=== PATIENT | male | born 1970 | race Two or more races ===

== ENCOUNTER 2024-09-25 09:15 | Inpatient (IN) | payer OTHER ==
[~2024-09-25] VITALS: Ht 165.1 cm; Wt 64.0 kg
[2024-09-25 11:09] VITALS: BP 132/78
[2024-09-25 11:19] LABS: URINE APPEARANCE Clear; URINE BILIRRUBIN Negative (NEGATIVE); URINE BLOOD Negative; URINE COLOR Yellow; URINE GLUCOSE Negative (NEGATIVE); URINE KETONE Negative (NEGATIVE); URINE LEUKOCYTE Negative; URINE NITRATE Negative; URINE PROTEIN Negative (NEGATIVE); URINE UROBILINOGEN 1.0 E.U./dl
[2024-09-25 11:30] LABS: URINE BACTERIA 0 uL (0.0-1933); URINE CAST 0.00 uL (0.0-1.40); URINE EPITHELIAL CELLS 0.3 uL (0.0-38.8); URINE RBC 0.8 uL (0.0-20.8); URINE WBC 0.3 uL (0.0-23.2)
[2024-09-25 11:35] LABS: BASO % 0.7 % (0.1-1.2); EOS # 0.14 (0.04-0.54); EOS % 2.0 % (0.7-7.0); LYMPH # 1.91 (1.18-3.74); LYMPH % 27.4 % (19.3-53.1); MEAN PLATELET VOLUME 10.40 fl (9.4-12.4); MONO # 0.54 (0.24-0.82); MONO % 7.7 % (4.7-12.5); NEUT # 4.31 (1.56-6.13); NEUT % 61.8 % (34.0-71.1)
[2024-09-25 11:58] LABS: INR 1.05
[2024-09-25 12:06] LABS: ALT/SGPT 13.0 U/L (12-78); AST/SGOT 12.0 U/L (15-37); BILIRUBIN TOTAL 0.66 mg/dL (0.3-1.2); BUN CREA RATIO 10.0 (7.0-25.0); CREATININE SERUM 0.63 mg/dL (0.70-1.30); GFR 132.22; GLOBULINA 3.3 G/DL (2.4-3.5); GLUCOSE FASTING 93.0 mg/dL (65-100); OSMOLALITY SERUM 279.0 MOSM/KG (275-295)
[2024-09-25 13:07] LABS: RH POSITIVE
[2024-09-25 13:30] LABS: RED CELL DISTRIBUTION WIDTH 25.2 % (11.6-14.4)
[2024-10-01] MEDS ORDERED: BUPIVACAINE HCL 30 ML VIAL IJ ONE (11:30)
[2024-10-01] MEDS ORDERED: METRONIDAZOLE/SODIUM CHLORIDE 500 MG/100 ML PIGGYBACK IV ONE (11:30)
[2024-10-01] MEDS ORDERED: CEFTRIAXONE SODIUM 2,000 MG VIAL IV ONE (11:30)
[2024-10-01] MEDS ORDERED: LIDOCAINE HCL 1%/EPINEPHRINE 20ML VIAL IJ ONE (11:30)
[2024-10-01] MEDS ORDERED: OxyCODONE HCL 5 MG TABLET (ROXICODONE) PO PRN (11:45)
[2024-10-01] MEDS ORDERED: ONDANSETRON HCL 2 MG/ML VIAL IV PRN (11:45)
[2024-10-01] MEDS ORDERED: RINGERS SOLUTION,LACTATED 1,000 ML IV SCH (11:45)
[2024-10-01] MEDS ORDERED: MORPHINE SULFATE 4 MG/ML CARTRIDGE IV PRN (11:45)
[2024-10-01] MEDS ORDERED: DEXTROSE 50 % IN WATER 0.5 G/ML VIAL IV PRN (11:45)
[2024-10-01] MEDS ORDERED: HYOSCYAMINE SULFATE 0.125 MG TAB.SUBL SL SCH (13:00)
[2024-10-01] MEDS ORDERED: MORPHINE SULFATE 4 MG/ML VIAL IV ONE (13:35)
[2024-10-01] MEDS ORDERED: ACETAMINOPHEN 500 MG GEL..CAP PO SCH (14:00)
[2024-10-01 16:07] LABS: BASO % 0.2 % (0.1-1.2); EOS # 0.00 (0.04-0.54); EOS % 0.0 % (0.7-7.0); LYMPH # 0.72 (1.18-3.74); LYMPH % 4.2 % (19.3-53.1); MONO # 0.67 (0.24-0.82); MONO % 3.9 % (4.7-12.5); NEUT # 15.62 (1.56-6.13); NEUT % 91.3 % (34.0-71.1)
[2024-10-01 16:16] LABS: RED CELL DISTRIBUTION WIDTH 26.5 % (11.6-14.4)
[2024-10-01 16:20] VITALS: BP 126/75; O2SAT 94
[2024-10-01 16:32] LABS: BUN CREA RATIO 17.0 (7.0-25.0); CREATININE SERUM 0.6 mg/dL (0.70-1.30); GFR 139.88; GLUCOSE FASTING 96.0 mg/dL (65-100); OSMOLALITY SERUM 280.0 MOSM/KG (275-295)
[2024-10-01] MEDS ORDERED: GABAPENTIN 300 MG CAPSULE PO SCH (17:00)
[2024-10-01] MEDS ORDERED: FAMOTIDINE/PF 20 MG/2 ML VIAL IV PUSH SCH (21:00)
[2024-10-02 01:16] VITALS: BP 128/80; O2SAT 99
[2024-10-02 06:40] LABS: BASO % 0.3 % (0.1-1.2); EOS # 0.04 (0.04-0.54); EOS % 0.3 % (0.7-7.0); LYMPH # 1.86 (1.18-3.74); LYMPH % 13.7 % (19.3-53.1); MONO # 1.03 (0.24-0.82); MONO % 7.6 % (4.7-12.5); NEUT # 10.50 (1.56-6.13); NEUT % 77.7 % (34.0-71.1)
[2024-10-02 06:56] LABS: RED CELL DISTRIBUTION WIDTH 26.5 % (11.6-14.4)
[2024-10-02 07:17] LABS: BUN CREA RATIO 13.0 (7.0-25.0); CREATININE SERUM 0.54 mg/dL (0.70-1.30); GFR 157.96; GLUCOSE FASTING 85.0 mg/dL (65-100); OSMOLALITY SERUM 277.0 MOSM/KG (275-295)
[2024-10-02 08:00] VITALS: BP 155/76; O2SAT 97
[2024-10-02] MEDS ORDERED: ENOXAPARIN SODIUM 40 MG/0.4 ML SYRINGE SUBCUTANEO SCH (17:00)
[2024-10-02 17:23] VITALS: BP 170/86; O2SAT 99
[2024-10-03 00:27] VITALS: BP 134/79; O2SAT 99
[2024-10-03 08:10] VITALS: BP 133/83; O2SAT 98
[2024-10-03] MEDS ORDERED: ENOXAPARIN SODIUM 40 MG/0.4 ML SYRINGE SUBCUTANEO SCH (09:00)
[2024-10-03] MEDS ORDERED: HYOSCYAMINE0.125 M1 SL (14:30)
[2024-10-03] MEDS ORDERED: INTESTINEX680 M1 PO (14:30)
[2024-10-03 16:36] VITALS: BP 151/88; O2SAT 100
== END 2024-10-03 18:42 | disposition home or self-care (01) | DRG 330 ==
LOC: SURH 10-01 08:20 → O/R 10-01 08:20 → SURH 10-01 09:15
PROVIDERS: ADMIT Surgery; ATTEND Surgery
PROC: 07BC4ZZ Excision of Pelvis Lymphatic, Percutaneous Endoscopic Approach (ICD-10-PCS; 2024-10-01)
PROC: 0DBL4ZZ Excision of Transverse Colon, Percutaneous Endoscopic Approach (ICD-10-PCS; 2024-10-01)
PROC: 0DTF4ZZ Resection of Right Large Intestine, Percutaneous Endoscopic Approach (ICD-10-PCS; principal; 2024-10-01 10:45)
DX: C18.2 Malignant neoplasm of ascending colon (principal); C18.3 Malignant neoplasm of hepatic flexure; K62.5 Hemorrhage of anus and rectum; D49.0 Neoplasm of unspecified behavior of digestive system; R59.0 Localized enlarged lymph nodes; D64.89 Other specified anemias

== ENCOUNTER 2024-09-25 16:30 | Inpatient (IN) | payer OTHER ==
[~2024-09-25] VITALS: Ht 165.1 cm; Wt 65.3 kg
--- NOTE | 2024-09-25 16:36 | NUR ---
SE RECIBE PTE ALERTA Y ORIENTADO X3. REFIERE QUE SE REALIZO CBC EN EL [place] DE [place] Y TIENE HGB EN 6.O. PTE CON REFERIDO DE DRA. FRANCISCO HOLCOMB PARA ADMISION. SE MIDE SV Y SE UBICA
--- NOTE | 2024-09-25 17:09 | NUR ---
PACIENTE CONSULTADO CON MEDICINA INTERNA
[2024-09-25] MEDS ORDERED: FAMOTIDINE/PF 20 MG in 0.9 % SODIUM CHLORIDE 8 ML IV PUSH SCH (17:18)
[2024-09-25] MEDS ORDERED: ACETAMINOPHEN 500 MG GEL..CAP PO PRN (17:30)
[2024-09-25] MEDS ORDERED: 0.9 % SODIUM CHLORIDE 1,000 ML IV SCH (17:30)
[2024-09-25] MEDS ORDERED: ONDANSETRON HCL 4 MG in 0.9 % SODIUM CHLORIDE 50 ML IV PRN (17:30)
[2024-09-25 18:41] LABS: BASO % 0.9 % (0.1-1.2); EOS # 0.10 (0.04-0.54); EOS % 1.3 % (0.7-7.0); LYMPH # 2.26 (1.18-3.74); LYMPH % 29.0 % (19.3-53.1); MEAN PLATELET VOLUME 9.90 fl (9.4-12.4); MONO # 0.60 (0.24-0.82); MONO % 7.7 % (4.7-12.5); NEUT # 4.74 (1.56-6.13); NEUT % 60.8 % (34.0-71.1)
[2024-09-25 18:44] LABS: RED CELL DISTRIBUTION WIDTH 25.1 % (11.6-14.4)
[2024-09-25 19:05] LABS: INR 1.01
[2024-09-25 19:12] LABS: ALT/SGPT 18.0 U/L (12-78); AST/SGOT 16.0 U/L (15-37); BILIRUBIN TOTAL 0.51 mg/dL (0.3-1.2); BUN CREA RATIO 10.0 (7.0-25.0); CREATININE SERUM 0.92 mg/dL (0.70-1.30); GFR 85.41; GLOBULINA 3.3 G/DL (2.4-3.5); GLUCOSE FASTING 93.0 mg/dL (65-100); LDH 274.0 U/L (87-241); OSMOLALITY SERUM 283.0 MOSM/KG (275-295)
[2024-09-25 20:16] VITALS: BP 129/81; O2SAT 99
[2024-09-26 11:00] VITALS: BP 121/73; O2SAT 99
[2024-09-26 13:53] VITALS: BP 141/79; O2SAT 100
[2024-09-26 18:04] VITALS: BP 136/88; O2SAT 98
[2024-09-26 18:14] LABS: ob POSITIVE (NEGATIVE)
[2024-09-26] MEDS ORDERED: ENALAPRILAT DIHYDRATE 1.25 MG/ML VIAL IV PRN (19:45)
[2024-09-27 01:50] VITALS: BP 133/80; O2SAT 99
[2024-09-27 10:41] VITALS: BP 132/82; O2SAT 97
[2024-09-27 11:30] LABS: BASO % 0.7 % (0.1-1.2); EOS # 0.12 (0.04-0.54); EOS % 1.6 % (0.7-7.0); LYMPH # 1.41 (1.18-3.74); LYMPH % 19.2 % (19.3-53.1); MONO # 0.66 (0.24-0.82); MONO % 9.0 % (4.7-12.5); NEUT # 5.08 (1.56-6.13); NEUT % 69.1 % (34.0-71.1)
[2024-09-27 11:36] LABS: RED CELL DISTRIBUTION WIDTH 26.3 % (11.6-14.4)
== END 2024-09-27 15:04 | disposition home or self-care (01) | DRG 812 ==
LOC: ER 16:51 → SEC-K 18:55 → MEDJ 20:52 → SEC-K 20:55 → MEDJ 09-26 10:29
PROVIDERS: General Practice; ADMIT Internal Medicine; ATTEND Internal Medicine
PROC: 30233N1 Transfusion of Nonautologous Red Blood Cells into Peripheral Vein, Percutaneous Approach (ICD-10-PCS; principal; 2024-09-26)
DX: D64.9 Anemia, unspecified (principal)

== ENCOUNTER 2024-11-15 07:00 | Day surgery (SDC) | payer OTHER ==
[~2024-11-15 07:00] MED LIST: HYOSCYAMINE0.125 M1 SL; INTESTINEX680 M1 PO
[2024-11-15] MEDS ORDERED: CEFAZOLIN SODIUM 1,000 MG VIAL ONE (07:56)
[2024-11-15] MEDS ORDERED: HEPARIN SODIUM,PORCINE/PF 100 UNIT/ML SYRINGE IV ONE (10:17)
[2024-11-15] MEDS ORDERED: LIDOCAINE HCL 1%/EPINEPHRINE 20ML VIAL IJ ONE (10:20)
[2024-11-15] MEDS ORDERED: BUPIVACAINE HCL/MPF 0.5% 30ML VIAL ONE (10:20)
[2024-11-15] MEDS ORDERED: TRAM1TAB98 PO (11:55)
== END 2024-11-15 15:05 | disposition home or self-care (01) ==
LOC: CIR.AMB 07:00
PROVIDERS: ATTEND Surgery
DX: C18.3 Malignant neoplasm of hepatic flexure (principal); K62.5 Hemorrhage of anus and rectum; R59.0 Localized enlarged lymph nodes
CPT/HCPCS: 36561; C1751